=== PATIENT | female | born 1965 | race Caucasian/White ===

== ENCOUNTER 2016-08-10 05:38 | Emergency (ER) | payer BC ==
--- NOTE | 2016-08-10 08:00 | DIAGNOSTIC IMAGING REPORT ---
PROCEDURE: XR CHEST 2 VIEW INDICATION: SHORTNESS OF BREATH TECHNIQUE: Two views. COMPARISON: None. FINDINGS: The cardiomediastinal contour and central vasculature are within normal limits. The lungs are clear without focal consolidation, pleural effusion, or pneumothorax. The visualized osseous structures are intact. Surgical clips in the gallbladder fossa. IMPRESSION: 1. Normal chest.
--- NOTE | 2016-08-10 08:00 | ED NURSING NOTES ---
Clinical Report - Nurses [facility] [address] [place] [address] 08/10/2016 5:39 Patient: GILMA JENNINGS TRIAGE Triage time 05:44. Acuity: LEVEL 3. Chief Complaint: COUGH and SORE THROAT. --05:49 TonyaB, R.N. 05:43 08/10/16. BP: 109/68. HR: 70. RR: 18. O2 saturation: 97% on room air. Temp: 98.8 F. Pain level now: 10/21. --05:49 TonyaB, R.N. Weight: 90.7 kg. Height/Length: 65 inches. BMI: 33.3. --05:48 TonyaB, R.N. Medications Pepcid Oral. --05:47 TonyaB, R.N. Allergies No Known Drug Allergy. --05:46 TonyaB, R.N. History Arrived by private vehicle. Historian: patient. Onset. (1 weeks). ( pt complains of cough, headache and generalized body aches). Reports muscle aches. She has had a headache. 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 (guaifenesin with codeine). PAST MEDICAL HX: Immunizations: up-to-date. The patient is post-menopausal. SOCIAL HX: Never smoker. Occasional alcohol use. No drug use. No infectious disease exposure. SELF HARM ASSESSMENT: A self harm assessment was performed. The patient answered "no" to the question "Have you recently felt down, depressed, or hopeless?", "Have you noticed less interest or pleasure in doing things?", "Do you have thoughts of harming or killing yourself?", "Are you here because you tried to hurt yourself?", "Have you ever tried to hurt yourself before today?", "Have you recently had thoughts about harming or killing others?" and "Do you have any dangerous items in your possession?". FALL RISK ASSESSMENT: Fall risk assessment completed. No fall risk identified. NUTRITIONAL RISK ASSESSMENT: The nutritional risk assessment revealed no deficiencies. FUNCTIONAL ASSESSMENT: Functional assessment: no impairments noted. LEARNING NEEDS ASSESSMENT: The learning needs assessment revealed no barriers. SKIN INTEGRITY ASSESSMENT: Skin integrity risk assessment completed. No skin integrity risk identified. --05:49 Gianfranco Carter PROBLEMS: no known problems. ADDITIONAL SURGERIES: . Hernia Repair. --05:47 Gianfranco Carter Interventions ID band on patient. To treatment room. --05:49 Gianfranco Carter PHYSICAL ASSESSMENT GENERAL / NEURO / PSYCH: Alert. Oriented X 4. Appears in no acute distress. HEENT: Pupils equal, round and reactive to light. Ears within normal limits. Nares within normal limits. Mouth within normal limits upon inspection. Muffled voice. Mucous membranes are pink. RESPIRATORY: Respirations not labored. Cough productive of scant amounts of green sputum. Breath sounds within normal limits. CVS: Normal sinus rhythm noted. Capillary refill less than 2 seconds. SKIN: Skin is warm and dry. Normal skin turgor. --05:50 Gianfranco Carter NURSING PROGRESS NOTES 06:52 08/10/2016 Prednisone PO 20 mg given. Allergies verified and confirmed 5 rights. --06:52 Gianfranco Carter DISPOSITION / DISCHARGE Departure time: 08:Aug 10 2016. Condition at departure: improved. No learning barriers present. Discharge instructions provided and reviewed with the patient. Reviewed warnings. Reviewed medication(s). Treatments reviewed. Reviewed referrals. Work note given. Patient verbalized understanding. Written instructions provided in Tunisian. The patient was discharged home and accompanied by family. She left the Emergency Department ambulatory and via private vehicle. Family member driving. --08:26 Adrianne Mack R.N. 08:25 08/10/16. BP: 117/70. HR: 57. RR: 18. O2 saturation: 97%. Temp: 98.6 F. Pain level now 06/23. --08:26 Adrianne Mack R.N. Locked/Released at 08/10/2016 16:45 by Adrianne Mack R.N.
--- NOTE | 2016-08-10 08:00 | ED ORDER SUMMARY ---
..... Patient: GILMA JENNINGS OrderSheet [facility] VisitID: [id number] [address] [place] [address] 51y, F Registration Date/Time: 08/10/2016 ORDER SHEET Weight: 90.7 kg Allergies: No Known Drug Allergy GENERAL ORDERS: Chest 2V Urgent (06:47 08/10/2016 Mirna Kennedy) (Ack 6:51 AMcQuoid ER Tech1) (7:10 Tc) MEDICATION ORDERS: Prednisone PO 40 mg (NOW) (06:47 08/10/2016 Mirna Kennedy) (6:52 TBowaleksandra R.N.) IV FLUIDS: ORDER SHEET NOTES: [Electronically signed by Mina Guy Dr. (08:02 08/10/2016)] [Electronically signed by Adrianne Mack R.N. (16:45 08/10/2016)] [Electronically locked/signed by Adrianne Mack R.N. (16:45 08/10/2016)]
--- NOTE | 2016-08-10 08:00 | ED CLINICAL REPORT ---
Clinical Report - Physicians/Mid Levels [facility] [address] [place] [address] 08/10/2016 5:39 Patient: GILMA JENNINGS Time Seen: 06:26; initial patient contact. Arrived- By private vehicle. Historian- patient. HISTORY OF PRESENT ILLNESS Chief Complaint: COUGH. This started about 1 week ago and is still present (persistent). It was gradual in onset and has been constant. The illness is described as moderate. The patient has had sputum production, a cough, a sore throat, nasal congestion and sinus pressure. She has had sinus drainage and a nasal discharge. No difficulty breathing, chest discomfort or pain, fever or muscle aches. No chills or ear pain. Additional history - No known contact with a sick individual. Similar symptoms previously: None. Recent medical care: The patient was seen recently in a clinic. ( Currently on a Z pack and Codeine cough syrup). REVIEW OF SYSTEMS No headache, eye discomfort, nausea, vomiting or diarrhea. No pedal edema or calf pain. All systems otherwise negative, except as recorded above. PAST HISTORY no known problems. SURGERIES: . Hernia Repair. SOCIAL HISTORY Former smoker. No alcohol use or drug use. ADDITIONAL NOTES The nursing notes have been reviewed. PHYSICAL EXAM Vital Signs: 08/10/2016 05:43 BP: 109/68. HR: 70. RR: 18. O2 saturation: 97%. Temp: 98.8 F. Pain level now: 6/10. Have been reviewed as normal. Appearance: Alert. No acute distress. Head: Tenderness present to percussion/palpation of the sinuses: moderate right and left frontal tenderness. Eyes: Eyes normal inspection. ENT: Mild generalized pharyngeal erythema. The mucous membranes are not dry. Neck: Normal inspection. No lymphadenopathy. CVS: Normal heart rate and rhythm. Heart sounds normal. Respiratory: No respiratory distress. Breath sounds normal. Skin: Skin warm and dry. Normal skin color. Extremities: No calf tenderness. No lower extremity edema. Neuro: Oriented X 3. LABS, X-RAYS, AND EKG Chest X-ray: No acute disease. Normal lung markings present. Normal heart size. Mediastinum normal. Great vessels normal. Soft tissues normal. No infiltrate. No fracture. No bony lesion present. Views: PA and lateral. Technique: good. The X-rays were independently viewed by me and interpreted contemporaneously by me. Prior films were not available for comparison. Interpretation time: 07:59. PROGRESS AND PROCEDURES Disposition: Discharged home in good condition. Condition: good. CLINICAL IMPRESSION Acute frontal sinusitis Acute cough. INSTRUCTIONS Do not work today. Your Current Medications: CONTINUE TAKING THE FOLLOWING MEDICATIONS: Pepcid Oral. Prescription Medications: Prednisone 20 mg: take 2 orally every day for 4 days. Dispense sufficient quantity. No refills. (Start on 08/11/16) Follow-up: Follow up with your doctor in about two days. Call for an appointment. Screening today revealed the patient's blood pressure to be in the normal range. (Electronically signed by Mina Guy Dr. 08/10/2016 8:02)
--- NOTE | 2016-08-10 08:00 | ED NURSING NOTES ---
Clinical Report - Nurses [facility] [address] [place] [address] 08/10/2016 5:39 Patient: GILMA JENNINGS TRIAGE Triage time 05:44. Acuity: LEVEL 3. Chief Complaint: COUGH and SORE THROAT. --05:49 TonyaB, R.N. 05:43 08/10/16. BP: 109/68. HR: 70. RR: 18. O2 saturation: 97% on room air. Temp: 98.8 F. Pain level now: 10/21. --05:49 TonyaB, R.N. Weight: 90.7 kg. Height/Length: 65 inches. BMI: 33.3. --05:48 TonyaB, R.N. Medications Pepcid Oral. --05:47 TonyaB, R.N. Allergies No Known Drug Allergy. --05:46 TonyaB, R.N. History Arrived by private vehicle. Historian: patient. Onset. (1 weeks). ( pt complains of cough, headache and generalized body aches). Reports muscle aches. She has had a headache. 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 (guaifenesin with codeine). PAST MEDICAL HX: Immunizations: up-to-date. The patient is post-menopausal. SOCIAL HX: Never smoker. Occasional alcohol use. No drug use. No infectious disease exposure. SELF HARM ASSESSMENT: A self harm assessment was performed. The patient answered "no" to the question "Have you recently felt down, depressed, or hopeless?", "Have you noticed less interest or pleasure in doing things?", "Do you have thoughts of harming or killing yourself?", "Are you here because you tried to hurt yourself?", "Have you ever tried to hurt yourself before today?", "Have you recently had thoughts about harming or killing others?" and "Do you have any dangerous items in your possession?". FALL RISK ASSESSMENT: Fall risk assessment completed. No fall risk identified. NUTRITIONAL RISK ASSESSMENT: The nutritional risk assessment revealed no deficiencies. FUNCTIONAL ASSESSMENT: Functional assessment: no impairments noted. LEARNING NEEDS ASSESSMENT: The learning needs assessment revealed no barriers. SKIN INTEGRITY ASSESSMENT: Skin integrity risk assessment completed. No skin integrity risk identified. --05:49 Gianfranco Carter PROBLEMS: no known problems. ADDITIONAL SURGERIES: . Hernia Repair. --05:47 Gianfranco Carter Interventions ID band on patient. To treatment room. --05:49 Gianfranco Carter PHYSICAL ASSESSMENT GENERAL / NEURO / PSYCH: Alert. Oriented X 4. Appears in no acute distress. HEENT: Pupils equal, round and reactive to light. Ears within normal limits. Nares within normal limits. Mouth within normal limits upon inspection. Muffled voice. Mucous membranes are pink. RESPIRATORY: Respirations not labored. Cough productive of scant amounts of green sputum. Breath sounds within normal limits. CVS: Normal sinus rhythm noted. Capillary refill less than 2 seconds. SKIN: Skin is warm and dry. Normal skin turgor. --05:50 Gianfranco Carter NURSING PROGRESS NOTES 06:52 08/10/2016 Prednisone PO 20 mg given. Allergies verified and confirmed 5 rights. --06:52 Gianfranco Carter DISPOSITION / DISCHARGE Departure time: 08:Aug 10 2016. Condition at departure: improved. No learning barriers present. Discharge instructions provided and reviewed with the patient. Reviewed warnings. Reviewed medication(s). Treatments reviewed. Reviewed referrals. Work note given. Patient verbalized understanding. Written instructions provided in Haitian. The patient was discharged home and accompanied by family. She left the Emergency Department ambulatory and via private vehicle. Family member driving. --08:26 Adrianne Mack R.N. 08:25 08/10/16. BP: 117/70. HR: 57. RR: 18. O2 saturation: 97%. Temp: 98.6 F. Pain level now 06/23. --08:26 Adrianne Mack R.N. Locked/Released at 08/10/2016 16:45 by Adrianne Mack R.N.
--- NOTE | 2016-08-10 08:00 | ED ORDER SUMMARY ---
..... Patient: GILMA JENNINGS OrderSheet [facility] VisitID: [id number] [address] [place] [address] 51y, F Registration Date/Time: 08/10/2016 ORDER SHEET Weight: 90.7 kg Allergies: No Known Drug Allergy GENERAL ORDERS: Chest 2V Urgent (06:47 08/10/2016 Mirna Kennedy) (Ack 6:51 AMcQuoid ER Tech1) (7:10 Tc) MEDICATION ORDERS: Prednisone PO 40 mg (NOW) (06:47 08/10/2016 Mirna Kennedy) (6:52 TBowaleksandra R.N.) IV FLUIDS: ORDER SHEET NOTES: [Electronically signed by Mina Guy Dr. (08:02 08/10/2016)] [Electronically signed by Adrianne Mack R.N. (16:45 08/10/2016)] [Electronically locked/signed by Adrianne Mack R.N. (16:45 08/10/2016)]
--- NOTE | 2016-08-10 08:00 | ED CLINICAL REPORT ---
Clinical Report - Physicians/Mid Levels [facility] [address] [place] [address] 08/10/2016 5:39 Patient: GILMA JENNINGS Time Seen: 06:26; initial patient contact. Arrived- By private vehicle. Historian- patient. HISTORY OF PRESENT ILLNESS Chief Complaint: COUGH. This started about 1 week ago and is still present (persistent). It was gradual in onset and has been constant. The illness is described as moderate. The patient has had sputum production, a cough, a sore throat, nasal congestion and sinus pressure. She has had sinus drainage and a nasal discharge. No difficulty breathing, chest discomfort or pain, fever or muscle aches. No chills or ear pain. Additional history - No known contact with a sick individual. Similar symptoms previously: None. Recent medical care: The patient was seen recently in a clinic. ( Currently on a Z pack and Codeine cough syrup). REVIEW OF SYSTEMS No headache, eye discomfort, nausea, vomiting or diarrhea. No pedal edema or calf pain. All systems otherwise negative, except as recorded above. PAST HISTORY no known problems. SURGERIES: . Hernia Repair. SOCIAL HISTORY Former smoker. No alcohol use or drug use. ADDITIONAL NOTES The nursing notes have been reviewed. PHYSICAL EXAM Vital Signs: 08/10/2016 05:43 BP: 109/68. HR: 70. RR: 18. O2 saturation: 97%. Temp: 98.8 F. Pain level now: 6/10. Have been reviewed as normal. Appearance: Alert. No acute distress. Head: Tenderness present to percussion/palpation of the sinuses: moderate right and left frontal tenderness. Eyes: Eyes normal inspection. ENT: Mild generalized pharyngeal erythema. The mucous membranes are not dry. Neck: Normal inspection. No lymphadenopathy. CVS: Normal heart rate and rhythm. Heart sounds normal. Respiratory: No respiratory distress. Breath sounds normal. Skin: Skin warm and dry. Normal skin color. Extremities: No calf tenderness. No lower extremity edema. Neuro: Oriented X 3. LABS, X-RAYS, AND EKG Chest X-ray: No acute disease. Normal lung markings present. Normal heart size. Mediastinum normal. Great vessels normal. Soft tissues normal. No infiltrate. No fracture. No bony lesion present. Views: PA and lateral. Technique: good. The X-rays were independently viewed by me and interpreted contemporaneously by me. Prior films were not available for comparison. Interpretation time: 07:59. PROGRESS AND PROCEDURES Disposition: Discharged home in good condition. Condition: good. CLINICAL IMPRESSION Acute frontal sinusitis Acute cough. INSTRUCTIONS Do not work today. Your Current Medications: CONTINUE TAKING THE FOLLOWING MEDICATIONS: Pepcid Oral. Prescription Medications: Prednisone 20 mg: take 2 orally every day for 4 days. Dispense sufficient quantity. No refills. (Start on 08/11/16) Follow-up: Follow up with your doctor in about two days. Call for an appointment. Screening today revealed the patient's blood pressure to be in the normal range. (Electronically signed by Mina Guy Dr. 08/10/2016 8:02)
--- NOTE | 2016-08-10 16:45 | ED MED RECONCILIATION SUMMARY ---
Patient: GILMA JENNINGS Medication Reconciliation Report [facility] VisitID: [id number] [address] [place] [address] 51y, F Registration Date/Time: 08/10/2016 Weight: 90.7 kg Height/Length: 65 in. BMI: 33.3 ALLERGIES: No Known Drug Allergy The patient's Home Medications are listed below: CONTINUE TAKING THE FOLLOWING MEDICATIONS: Pepcid Oral The source(s) of the original Home Medication information: Not obtained. The following Medications were given to the patient in the Emergency Department: Prednisone [PO] PO 20 mg, administered: 08/10/2016 6:52:00 AM The following Medications were prescribed to the patient: Prednisone 20 mg: take 2 orally every day for 4 days. Dispense sufficient quantity. No refills.(Start on 08/11/16) -- Mina Guy Dr.
--- NOTE | 2016-08-10 16:45 | ED DISCHARGE INSTRUCTIONS ---
Patient: GILMA JENNINGS General Instructions [facility] VisitID: [id number] [place] [address] 51y, F Registration Date/Time: 08/10/2016 Acute frontal sinusitis Acute cough. INSTRUCTIONS Do not work today. Your Current Medications: CONTINUE TAKING THE FOLLOWING MEDICATIONS: Pepcid Oral. Prescription Medications: Prednisone 20 mg: take 2 orally every day for 4 days. Dispense sufficient quantity. No refills. (Start on 08/11/16) Follow-up: Follow up with your doctor in about two days. Call for an appointment. Screening today revealed the patient's blood pressure to be in the normal range. ADDITIONAL INFORMATION Sinusitis [Abx Tx] The sinuses are air-filled spaces within the bones of the face. They connect to the inside of the nose. Sinusitis is an inflammation of the tissue lining the sinus cavity. Sinus inflammation can occur during a cold or hay-fever (allergies to pollens and other particles in the air) and cause symptoms of sinus congestion and fullness. A sinus infection causes fever, headache and facial pain. There is usually green or yellow drainage from the nose or into the back of the throat (post-nasal drip). Antibiotics are prescribed to treat this condition. Home Care: Drink plenty of water, hot tea, and other liquids to stay well hydrated. This thins the mucus and promotes sinus drainage. Apply heat to the painful areas of the face. Use a towel soaked in hot water. Or, branch lending officer the shower and direct the hot spray onto your face. This is a good way to inhale warm water vapor and get heat on your face at the same time. (Cover your mouth and nose with your hands so you can still breathe as you do this.) Use a vaporizer with products such as Vicks VapoRub (contains menthol) at night. Suck on peppermint, menthol or eucalyptus hard candies during the day. An expectorant containing guaifenesin (such as Robitussin), helps to thin the mucus and promote drainage from the sinuses. [id number] decongestants may be used unless a similar medicine was prescribed. Nasal sprays work the fastest. Use one that contains phenylephrine (Krish-synephrine, Sinex and others) or oxymetazoline (Afrin). First blow the nose gently to remove mucus, then apply the drops. Do not use these medicines more often than directed on the label or for more than three days or symptoms may worsen. You may also use tablets containing pseudoephedrine (Sudafed). Many sinus remedies combine ingredients, which may increase side effects. Read the labels or ask the pharmacist for help. NOTE: Persons with high blood pressure should not use decongestants. They can raise blood pressure. Antihistamines are useful if allergies are a cause of your sinusitis. The mildest one is chlorpheniramine (available without a prescription). The dose for adults is 8-12mg three times a day. [NOTE: Do not use chlorpheniramine if you have glaucoma or if you are a man with trouble urinating due to an enlarged prostate.] Claritin (loratidine) is an antihistamine that causes less drowsiness and is a good alternative for daytime use. Do not use nasal rinses or irrigation during an acute sinus infection, unless advised by your doctor. Rinsing may spread the infection to other sinuses. You may use acetaminophen (Tylenol) or ibuprofen (Motrin, Advil) to control pain, unless another pain medicine was prescribed. [ NOTE: If you have chronic liver or kidney disease or ever had a stomach ulcer, talk with your doctor before using these medicines.] (Aspirin should never be used in anyone under 18 years of age who is ill with a fever. It may cause severe liver damage.) Finish the full course, even if you are feeling better after a few days. Follow Up with your doctor or this facility in one week or as instructed by our staff if not improving. Get Prompt Medical Attention if any of the following occur: Facial pain or headache becomes more severe Stiff neck Unusual drowsiness or confusion, or not acting like your normal self Swelling of the forehead or eyelids Vision problems including blurred or double vision Fever of 100.4F (38C) or higher, or as directed by your healthcare provider Seizure Prednisone Oral tablet What is this medicine? PREDNISONE (PRED ni sone) is a corticosteroid. It is commonly used to treat inflammation of the skin, joints, lungs, and other organs. Common conditions treated include asthma, allergies, and arthritis. It is also used for other conditions, such as blood disorders and diseases of the adrenal glands. How should I use this medicine? Take this medicine by mouth with a glass of water. Follow the directions on the prescription label. Take this medicine with food. If you are taking this medicine once a day, take it in the morning. Do not take more medicine than you are told to take. Do not suddenly stop taking your medicine because you may develop a severe reaction. Your doctor will tell you how much medicine to take. If your doctor wants you to stop the medicine, the dose may be slowly lowered over time to avoid any side effects. Talk to your studio operator regarding the use of this medicine in children. Special care may be needed. What side effects may I notice from receiving this medicine? Side effects that you should report to your doctor or health direct care counselor as soon as possible: allergic reactions like skin rash, itching or hives, swelling of the face, lips, or tongue changes in emotions or moods changes in vision depressed mood eye pain fever or chills, cough, sore throat, pain or difficulty passing urine increased thirst swelling of ankles, feet Side effects that usually do not require medical attention (report to your doctor or health direct care counselor if they continue or are bothersome): confusion, excitement, restlessness headache nausea, vomiting skin problems, acne, thin and shiny skin trouble sleeping weight gain What may interact with this medicine? Do not take this medicine with any of the following medications: metyrapone mifepristone This medicine may also interact with the following medications: aminoglutethimide amphotericin B aspirin and aspirin-like medicines barbiturates certain medicines for diabetes, like glipizide or glyburide cholestyramine cholinesterase inhibitors cyclosporine digoxin diuretics ephedrine female hormones, like estrogens and control pills isoniazid ketoconazole NSAIDS, medicines for pain and inflammation, like ibuprofen or naproxen phenytoin rifampin toxoids vaccines warfarin What if I miss a dose? If you miss a dose, take it as soon as you can. If it is almost time for your next dose, talk to your doctor or health direct care counselor. You may need to miss a dose or take an extra dose. Do not take double or extra doses without advice. Where should I keep my medicine? Keep out of the reach of children. Store at room temperature between 15 and 30 degrees C (59 and 86 degrees F). Protect from light. Keep container tightly closed. Throw away any unused medicine after the expiration date. What should I tell my health care provider before I take this medicine? They need to know if you have any of these conditions: Minetto's syndrome diabetes glaucoma heart disease high blood pressure infection (especially a virus infection such as chickenpox, cold sores, or herpes) kidney disease liver disease mental illness myasthenia gravis osteoporosis seizures stomach or intestine problems thyroid disease an unusual or allergic reaction to lactose, prednisone, other medicines, foods, dyes, or preservatives or trying to get breast-feeding What should I watch for while using this medicine? Visit your doctor or health direct care counselor for regular checks on your progress. If you are taking this medicine over a prolonged period, carry an identification card with your name and address, the type and dose of your medicine, and your doctor's name and address. This medicine may increase your risk of getting an infection. Tell your doctor or health direct care counselor if you are around anyone with measles or chickenpox, or if you develop sores or blisters that do not heal properly. If you are going to have surgery, tell your doctor or health direct care counselor that you have taken this medicine within the last twelve months. Ask your doctor or health direct care counselor about your diet. You may need to lower the amount of salt you eat. This medicine may affect blood sugar levels. If you have diabetes, check with your doctor or health direct care counselor before you change your diet or the dose of your diabetic medicine. You have been given the following additional information: Sinusitis, Abx Tx Prednisone Oral tablet Do not work today. (Electronically signed by Mina Guy Dr. 08/10/2016 8:02)
--- NOTE | 2016-08-10 16:45 | ED MED RECONCILIATION SUMMARY ---
Patient: GILMA JENNINGS Medication Reconciliation Report [facility] VisitID: [id number] [address] [place] [address] 51y, F Registration Date/Time: 08/10/2016 Weight: 90.7 kg Height/Length: 65 in. BMI: 33.3 ALLERGIES: No Known Drug Allergy The patient's Home Medications are listed below: CONTINUE TAKING THE FOLLOWING MEDICATIONS: Pepcid Oral The source(s) of the original Home Medication information: Not obtained. The following Medications were given to the patient in the Emergency Department: Prednisone [PO] PO 20 mg, administered: 08/10/2016 6:52:00 AM The following Medications were prescribed to the patient: Prednisone 20 mg: take 2 orally every day for 4 days. Dispense sufficient quantity. No refills.(Start on 08/11/16) -- Mina Guy Dr.
--- NOTE | 2016-08-10 16:45 | ED MAR SUMMARY ---
..... Medication Administration Record [facility] [address] [place] [address] Patient: GILMA JENNINGS Visit ID: [id number] 51y, F Weight: 90.7 kg Height/Length: 65 in BMI: 33.3 ALLERGIES: No Known Drug Allergy Given 06:52 08/10/2016 Gianfranco Carter Medication Administered: PREDNISONE [PO], Dose: 20 mg PO. Medication Ordered: Prednisone PO 40 mg (NOW).
--- NOTE | 2016-08-10 16:45 | ED MAR SUMMARY ---
..... Medication Administration Record [facility] [address] [place] [address] Patient: GILMA JENNINGS Visit ID: [id number] 51y, F Weight: 90.7 kg Height/Length: 65 in BMI: 33.3 ALLERGIES: No Known Drug Allergy Given 06:52 08/10/2016 Gianfranco Carter Medication Administered: PREDNISONE [PO], Dose: 20 mg PO. Medication Ordered: Prednisone PO 40 mg (NOW).
--- NOTE | 2016-08-10 16:45 | ED DISCHARGE INSTRUCTIONS ---
Patient: GILMA JENNINGS General Instructions [facility] VisitID: [id number] [place] [address] 51y, F Registration Date/Time: 08/10/2016 Acute frontal sinusitis Acute cough. INSTRUCTIONS Do not work today. Your Current Medications: CONTINUE TAKING THE FOLLOWING MEDICATIONS: Pepcid Oral. Prescription Medications: Prednisone 20 mg: take 2 orally every day for 4 days. Dispense sufficient quantity. No refills. (Start on 08/11/16) Follow-up: Follow up with your doctor in about two days. Call for an appointment. Screening today revealed the patient's blood pressure to be in the normal range. ADDITIONAL INFORMATION Sinusitis [Abx Tx] The sinuses are air-filled spaces within the bones of the face. They connect to the inside of the nose. Sinusitis is an inflammation of the tissue lining the sinus cavity. Sinus inflammation can occur during a cold or hay-fever (allergies to pollens and other particles in the air) and cause symptoms of sinus congestion and fullness. A sinus infection causes fever, headache and facial pain. There is usually green or yellow drainage from the nose or into the back of the throat (post-nasal drip). Antibiotics are prescribed to treat this condition. Home Care: Drink plenty of water, hot tea, and other liquids to stay well hydrated. This thins the mucus and promotes sinus drainage. Apply heat to the painful areas of the face. Use a towel soaked in hot water. Or, drawer in plain loom the shower and direct the hot spray onto your face. This is a good way to inhale warm water vapor and get heat on your face at the same time. (Cover your mouth and nose with your hands so you can still breathe as you do this.) Use a vaporizer with products such as Vicks VapoRub (contains menthol) at night. Suck on peppermint, menthol or eucalyptus hard candies during the day. An expectorant containing guaifenesin (such as Robitussin), helps to thin the mucus and promote drainage from the sinuses. Gcxk-slk-ljjvqof decongestants may be used unless a similar medicine was prescribed. Nasal sprays work the fastest. Use one that contains phenylephrine (Krish-synephrine, Sinex and others) or oxymetazoline (Afrin). First blow the nose gently to remove mucus, then apply the drops. Do not use these medicines more often than directed on the label or for more than three days or symptoms may worsen. You may also use tablets containing pseudoephedrine (Sudafed). Many sinus remedies combine ingredients, which may increase side effects. Read the labels or ask the pharmacist for help. NOTE: Persons with high blood pressure should not use decongestants. They can raise blood pressure. Antihistamines are useful if allergies are a cause of your sinusitis. The mildest one is chlorpheniramine (available without a prescription). The dose for adults is 8-12mg three times a day. [NOTE: Do not use chlorpheniramine if you have glaucoma or if you are a man with trouble urinating due to an enlarged prostate.] Claritin (loratidine) is an antihistamine that causes less drowsiness and is a good alternative for daytime use. Do not use nasal rinses or irrigation during an acute sinus infection, unless advised by your doctor. Rinsing may spread the infection to other sinuses. You may use acetaminophen (Tylenol) or ibuprofen (Motrin, Advil) to control pain, unless another pain medicine was prescribed. [ NOTE: If you have chronic liver or kidney disease or ever had a stomach ulcer, talk with your doctor before using these medicines.] (Aspirin should never be used in anyone under 18 years of age who is ill with a fever. It may cause severe liver damage.) Finish the full course, even if you are feeling better after a few days. Follow Up with your doctor or this facility in one week or as instructed by our staff if not improving. Get Prompt Medical Attention if any of the following occur: Facial pain or headache becomes more severe Stiff neck Unusual drowsiness or confusion, or not acting like your normal self Swelling of the forehead or eyelids Vision problems including blurred or double vision Fever of 100.4F (38C) or higher, or as directed by your healthcare provider Seizure Prednisone Oral tablet What is this medicine? PREDNISONE (PRED ni sone) is a corticosteroid. It is commonly used to treat inflammation of the skin, joints, lungs, and other organs. Common conditions treated include asthma, allergies, and arthritis. It is also used for other conditions, such as blood disorders and diseases of the adrenal glands. How should I use this medicine? Take this medicine by mouth with a glass of water. Follow the directions on the prescription label. Take this medicine with food. If you are taking this medicine once a day, take it in the morning. Do not take more medicine than you are told to take. Do not suddenly stop taking your medicine because you may develop a severe reaction. Your doctor will tell you how much medicine to take. If your doctor wants you to stop the medicine, the dose may be slowly lowered over time to avoid any side effects. Talk to your volunteer specialist regarding the use of this medicine in children. Special care may be needed. What side effects may I notice from receiving this medicine? Side effects that you should report to your doctor or health child care lead teacher as soon as possible: allergic reactions like skin rash, itching or hives, swelling of the face, lips, or tongue changes in emotions or moods changes in vision depressed mood eye pain fever or chills, cough, sore throat, pain or difficulty passing urine increased thirst swelling of ankles, feet Side effects that usually do not require medical attention (report to your doctor or health child care lead teacher if they continue or are bothersome): confusion, excitement, restlessness headache nausea, vomiting skin problems, acne, thin and shiny skin trouble sleeping weight gain What may interact with this medicine? Do not take this medicine with any of the following medications: metyrapone mifepristone This medicine may also interact with the following medications: aminoglutethimide amphotericin B aspirin and aspirin-like medicines barbiturates certain medicines for diabetes, like glipizide or glyburide cholestyramine cholinesterase inhibitors cyclosporine digoxin diuretics ephedrine female hormones, like estrogens and control pills isoniazid ketoconazole NSAIDS, medicines for pain and inflammation, like ibuprofen or naproxen phenytoin rifampin toxoids vaccines warfarin What if I miss a dose? If you miss a dose, take it as soon as you can. If it is almost time for your next dose, talk to your doctor or health child care lead teacher. You may need to miss a dose or take an extra dose. Do not take double or extra doses without advice. Where should I keep my medicine? Keep out of the reach of children. Store at room temperature between 15 and 30 degrees C (59 and 86 degrees F). Protect from light. Keep container tightly closed. Throw away any unused medicine after the expiration date. What should I tell my health care provider before I take this medicine? They need to know if you have any of these conditions: [place]'s syndrome diabetes glaucoma heart disease high blood pressure infection (especially a virus infection such as chickenpox, cold sores, or herpes) kidney disease liver disease mental illness myasthenia gravis osteoporosis seizures stomach or intestine problems thyroid disease an unusual or allergic reaction to lactose, prednisone, other medicines, foods, dyes, or preservatives or trying to get breast-feeding What should I watch for while using this medicine? Visit your doctor or health child care lead teacher for regular checks on your progress. If you are taking this medicine over a prolonged period, carry an identification card with your name and address, the type and dose of your medicine, and your doctor's name and address. This medicine may increase your risk of getting an infection. Tell your doctor or health child care lead teacher if you are around anyone with measles or chickenpox, or if you develop sores or blisters that do not heal properly. If you are going to have surgery, tell your doctor or health child care lead teacher that you have taken this medicine within the last twelve months. Ask your doctor or health child care lead teacher about your diet. You may need to lower the amount of salt you eat. This medicine may affect blood sugar levels. If you have diabetes, check with your doctor or health child care lead teacher before you change your diet or the dose of your diabetic medicine. You have been given the following additional information: Sinusitis, Abx Tx Prednisone Oral tablet Do not work today. (Electronically signed by Mina Guy Dr. 08/10/2016 8:02)
== END 2016-08-10 08:08 | disposition home or self-care (01) ==
LOC: ED SRH 05:38
DX: J01.10 Acute frontal sinusitis, unspecified (principal); R05 Cough; Z87.891 Personal history of nicotine dependence